=== PATIENT | male | born 1990 | race Caucasian/White ===

== ENCOUNTER 2021-08-30 12:51 | Outpatient (REF) | payer MEDICAID, SELFPAY ==
--- NOTE | ~2021-08-30 | XR_ITS ---
EXAMINATION: XR FOOT, BILATERAL CLINICAL INFORMATION: Pain in the right and left foot. COMPARISON: None TECHNIQUE: 3 views of each foot. FINDINGS: RIGHT FOOT: There is a prominent hallux valgus with uncovering of the medial aspect of the head of the 1st metatarsal. No definite arthrosis. IP joint of the great toe: Question subtle subchondral cystic change in the IP joint without joint space narrowing. Remaining bones, joints and soft tissues unremarkable. LEFT FOOT: There is mild hallux valgus with slight uncovering in the medial aspect of the head of the 1st metatarsal. The bones, joints and soft tissues are otherwise unremarkable. XR/XR foot LT min 3V IMPRESSION: Right foot: Hallux valgus. Possible mild arthrosis of the IP joint of the great toe. Left foot: Normal.
--- NOTE | ~2021-08-30 | XR_ITS ---
EXAMINATION: XR FOOT, BILATERAL CLINICAL INFORMATION: Pain in the right and left foot. COMPARISON: None TECHNIQUE: 3 views of each foot. FINDINGS: RIGHT FOOT: There is a prominent hallux valgus with uncovering of the medial aspect of the head of the 1st metatarsal. No definite arthrosis. IP joint of the great toe: Question subtle subchondral cystic change in the IP joint without joint space narrowing. Remaining bones, joints and soft tissues unremarkable. LEFT FOOT: There is mild hallux valgus with slight uncovering in the medial aspect of the head of the 1st metatarsal. The bones, joints and soft tissues are otherwise unremarkable. XR/XR foot RT min 3V IMPRESSION: Right foot: Hallux valgus. Possible mild arthrosis of the IP joint of the great toe. Left foot: Normal.
--- NOTE | ~2021-08-30 | XR_ITS ---
EXAMINATION: XR KNEE, RIGHT CLINICAL INFORMATION: Pain in right knee COMPARISON: X-ray of the right knee June 2020 TECHNIQUE: Four views of the right knee. FINDINGS: There are postoperative changes related to ACL reconstruction surgery unchanged compared to prior. The bones joints and soft tissues are otherwise normal. XR/XR knee RT 4V IMPRESSION: Stable postoperative changes related to prior ACL reconstruction surgery. No additional findings noted.
== END 2021-08-30 12:52 | disposition home or self-care (01) ==
LOC: HO.XRAY 12:51
PROVIDERS: PCP Internal Medicine Geriatric Medicine; Visit Provider Internal Medicine Geriatric Medicine
DX: M79.671 Pain in right foot (principal); M79.672 Pain in left foot; M25.561 Pain in right knee
CPT/HCPCS: 73564; 73630

== ENCOUNTER 2022-07-16 13:42 | Outpatient (REF) | payer MEDICAID, SELFPAY ==
--- NOTE | 2022-07-16 14:55 | MHC.AU.MED ---
Medical Clearance for Hearing Instrumentation Date: 07/16/22 Patient Name: Brad Ulloa Date of : 1990 Primary Care Provider: Referring Provider: Steven Cruz MD We have seen your patient on 07/16/22 and have determined that they are a candidate for amplification (See accompanying report). Specifically, they would benefit from: Hearing aid use in both ears There is a statute that addresses Medical Evaluation Requirements prior to fitting a patient with a hearing aid. According to [place] statute 265 CMR:6.03(1), (a) General. Except as provided in 265 CMR 6.03(1)(b), a cloth shearing supervisor shall not sell a hearing aid unless the prospective user has presented to the cloth shearing supervisor a written statement signed by a licensed physician that states that the patient's hearing loss has been medically evaluated and the patient may be considered a candidate for a hearing aid. The medical evaluation must have taken place within the preceding six months. Please note: Due to the [place] Statute referenced above, we cannot accept a signature other than that of a licensed physician. AUTO TECH and PA signatures cannot be accepted. I am in agreement with the above recommendation. There is no medical contraindication for hearing instrumentation. Physician Signature Date Physician Name (Printed)
--- NOTE | 2022-07-16 14:56 | MHC.AU.HAS ---
Hearing Aid Evaluation Date of Visit: 07/16/22 Claim Professional Used: [employer]- In Person Historical Information: Description of Hearing: Mild to moderately severe sensorineural hearing loss. Current personal amplification information: Virto V50-312: Destroyed about 2 years ago Summary: Reports having worn them consistently prior to their destruction. However, seemed too loud. Hearing Aid Prescription: Based on the individual?s shared listening needs, communication environments, dexterity, desire for connectivity, and personal preferences, the following prescription for amplification has been made: Right ear: Carbide Die Maker: SmartWatch [employer] Sound Model: Virto Battery Size: 312 Left ear: Left ear prescription to be same as Right Hearing Aid above: Plan of Care: Patient wishes to purchase hearing aids as prescribed Action Taken/Action Needed: [place] Impressions Taken Medical Clearance to be requested from PCP/ENT Primary Diagnosis: H90.3 Bilateral Sensorineural Hearing Loss Secondary Diagnosis: Signature: Provider: Jeffery Shukla, FAAA
== END 2022-07-16 13:43 | disposition home or self-care (01) ==
LOC: HO.SH 13:42
PROVIDERS: Visit Provider Internal Medicine Geriatric Medicine
DX: Z01.118 Encounter for examination of ears and hearing with other abnormal findings (principal); Z46.1 Encounter for fitting and adjustment of hearing aid; H90.3 Sensorineural hearing loss, bilateral
CPT/HCPCS: 92557; 92567; 92588; 92591; V5010; V5275

== ENCOUNTER 2022-09-13 09:56 | Outpatient (REF) | payer MEDICAID, SELFPAY | END 2022-09-13 09:57 | disposition home or self-care (01) | LOC: HO.HAP 09:56 | PROVIDERS: Visit Provider Internal Medicine Geriatric Medicine | DX: Z46.1 Encounter for fitting and adjustment of hearing aid (principal); H90.3 Sensorineural hearing loss, bilateral | CPT/HCPCS: V5011; V5020; V5160; V5259; V5266 ==

== ENCOUNTER 2023-07-03 08:47 | Outpatient (AMB) | payer MEDICAID, SELFPAY ==
[2023-07-03 08:48] VITALS: BP 130/92; PULSE 72; TEMP 36.3; O2SAT 97; BMI 30.4
--- NOTE | 2023-07-03 08:48 | MHC.OFFVIS ---
Intake Vital Signs 07/03/23 08:48 Height 6 ft Weight 224 lb 6.889 oz BMI 30.4 BP 130/92 H Blood Pressure Location Lt brachial Position Sitting Pulse 72 Pulse Source Pulse Oximeter Temp 97.3 F Temp Source Skin Pulse Oximetry (%) 97 Oxygen Delivery Method Room Air Intake Visit Reasons: +YUSEF Intake Note: New patient here for +YUSEF. c/o multiple joint pains, severe finger pain Mathematical Scientist Required: No Accompanied by: Self / Same As Patient Allergies tramadol [TRAMADOL] Allergy (Unknown, Unverified 07/03/23 08:52) ITCHY HPI HPI Comments History of Present Illness Details The patient presents today for evaluation of positive YUSEF and joint pains. He is not exactly sure why he is here. He says he has had joint pains for most of his life that he can remember. He thinks the hands and feet are occasionally swollen. 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 Areas of pain include the hands, forearms, shoulders, lower back, hips, knees and feet. Currently he takes occasional gabapentin but finds it too sedating to take in the daytime. He was also on Celebrex in the past without any improvement and it seemed to cause him some heartburn. He also was on numerous medications for behavioral health disorders including mirtazapine, guanfacine, quetiapine, and trazodone. He stopped taking them he said because they made him feel weird. He admits he does have anxiety problems and occasional panic attacks. He also said that he was not going to go back to the [facility] in [place]. They had been following him for over 2 years he said. He says he feels they were not listening to him but he has no plans to seek a different behavior health provider. He is living with a cousin at present. He was using cocaine in the past but denies that currently. He also used to see a neurologist about headaches and seizure disorder. He was on some seizure medicines but stopped that as well.He reports no recent seizures. 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 Negative for appetite change, weight change, fever, chills, malaise Eyes Details: Some dryness in the eyes. Frequent headaches, a chronic problem. Negative for vision change and dizziness ENT Details: Chronic hearing loss since a child. He has some hearing aids but does not like to use them. Negative for hearing change, tinnitus, oral ulcer, nose bleeds and oral dryness. Card Details: Negative chest pain, edema and syncope Resp Details: Occasional cough and wheezing due to asthma. He uses occasional albuterol inhaler ring goes to the ER when he gets sick. Presently negative for SOB, cough and wheezing GI Details: Intermittent epigastric pains. Negative for nausea, other abdominal pain, bowel changes, diarrhea, constipation and bloody stool. Details: Negative for dysuria, hematuria, nocturia, decreased force/flow and genital discharge Skin/Breast Details: Negative for itching, rash, hives, Raynaud's symptoms, sun sensitivity, and skin cancer Neuro Details: Negative for epilepsy, palsy, stroke, changes in speech, tingling and weakness Psych Details: Negative for anxiety, depression and stress Endo Details: Negative for polyuria and polydypsia Rudy/Lymph Details: Negative for excessive bruising or bleeding. Physical Exam Vital Signs: Last Vital Signs Temp 97.3 F 07/03/23 08:48 Pulse 72 07/03/23 08:48 BP 130/92 H 07/03/23 08:48 Pulse Ox 97 07/03/23 08:48 Oxygen Delivery Method Room Air 07/03/23 08:48 BMI result Body Mass Index 30.4 APPEARANCE: Patient in no acute distress EYES no redness, pupils equal and reactive to light, eyelids normal EARS: External ear normal, canal clear and tympanic membrane normal. NOSE/SINUS: Airflow through both nares, no nasal discharge, no bleeding THROAT: Oral mucosa moist, no ulcerations NECK: No thyromegaly or masses, no adenopathy, trachea midline. HEART: Regulrar rhythm, S1-S2 heard, no murmurs, rubs or gallops. LUNG: Clear to percussion and auscultation ABD: Normal bowel sounds, no organomegaly, masses or tenderness. EXTREMITIES: No edema, no calf tenderness, normal peripheral pulses. NEURO: Oriented and alert x3. No focal weakness. Reflexes symmetric. Gait normal. SKIN: No inflammatory or neoplastic lesions. Normal color and turgor JOINT EXAM:.?? Cervical Spine:.? Mild pain with range of motion of the neck. There is some mild cervical muscle tenderness. Thoracic Spine:.? No scoliosis.? No tenderness on palpation. Lumbar Spine:.? Alignment normal.? Full range of motion with mild pain at the extremes. Straight leg raising causes some buttock and back pain at about 75 degrees. No tenderness. Chest Wall:.? No tenderness, swelling, increased warmth or erythema. Hands:.? Normal pain-free range of motion with mild tenderness across the fingers. No flexor tendon triggering. There is no soft tissue swelling, increased warmth or erythema. No sensory loss or thenar atrophy. Wrists:.? Normal pain-free range of motion with slight dorsal tenderness. No swelling, increased warmth or erythema. Elbows:. Normal pain-free range of motion without tenderness, swelling, increased warmth or erythema. Shoulders:.?? Full range of motion with mild discomfort at the extremes of abduction or internal or external rotation. Mild anterior tenderness without adenopathy, weakness, swelling, increased warmth or erythema. Hips:.? Full range of motion with mild lumbar pain with extremes of internal or external rotation. No groin pain with motion. Hip bursa:mild trochanteric tenderness. Knees:.? Right: Mild pain with extremes of flexion extension. There is mild medial and slight lateral tenderness without redness or effusion. No popliteal swelling or tenderness. Left:? Normal pain-free range of motion without tenderness, swelling, increased warmth or erythema.? There is no effusion or crepitation Ankles:.? Normal pain-free range of motion with slight medial and lateral tenderness but no swelling, increased warmth or erythema. Feet:.? Right: Mild 1st MTP bony enlargement and hallux valgus deformity with mild tenderness. Slight tenderness in the other MTP joints in the instep. No soft tissue swelling, redness or warmth. Left: Slight 1st MTP bony enlargement and tenderness but not as prominently so enlarged as on the right. There is no other area of tenderness or swelling. Tender points: Mild tenderness to digital palpation at the occiput, trapezius, second rib, lateral epicondyle, knees, greater trochanter and gluteal area bilaterally. ? Results Reviewed Results Reviewed: [facility]/175 Imaging Result Report Patient: Brad Ulloa Date of Service: 04/12/22 ? ? Patient Gender: Male Ordering Provider: Gonzalez Mcclendon : 1990 ? ? ? Final ORTHO X-RAY AP STANDING KNEES Exam Date: 04/12/2022 1:46 PM Ordering Diagnosis: Right knee pain, unspecified chronicity ? Date of Visit: 04/12/2022 ? Reason for Visit: Right Knee Pain ? Views: X-rays were performed at the [facility], including Bilateral Knee AP, Cervantes and Donalds views, as well as a Right Knee Lateral view. ? Findings: X-rays were reviewed with the patient. At the right knee, I do not appreciate any evidence of acute fracture, dislocation, or malalignment. There is mild medial femorotibial compartment joint space narrowing and marginal spurring at the medial compartment. There is spurring of the tibial spine. 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 ? Impression: Mild degenerative changes. ? Reading Radiologist: November 2022 lab work from PCP office: White count 6.3, hemoglobin 15.4, platelet count [id number], creatinine 0.97, AST 32, ALT 48, YUSEF positive with a 1:40 titer. Negative rheumatoid factor. CRP elevated 1.3 Assessment & Plan Assessment & Plan (1) Osteoarthritis of right knee: Comment: hx ACL tear and medical meniscal tear surgery 2016 Code(s): M17.11 - Unilateral primary osteoarthritis, right knee (2) YUSEF positive: Code(s): R76.8 - Other specified abnormal immunological findings in serum Plan The patient has a positive YUSEF but no real signs of an active inflammatory arthritis. The radiographs of the knee, which had previous meniscal surgery 6 years ago does reveal some mild medial compartment narrowing consistent with osteoarthritis. There is also some changes of DJD in the right 1st MTP joint. Overall he has many tender points, headache, and anxiety. He seems to fit the pattern more of fibromyalgia. He was given some printed information on fibromyalgia to review. I do not have a handle on what exactly one should label his mental illness but clearly he has anxiety problems. I told him to take the gabapentin only at night. He could use acetaminophen during the day for pain. I think he should work to get a new psychiatric provider to get him back on medicines to help with anxiety. We will check inflammatory markers, anti DNA antibody and anti NIKKY antibodies. I will get back to him with the results. Orders: Orders Anti DNA DS Antibody Today R76.8 - Other specified abnormal immunological findings in serum Erythrocyte Sedimentation Rate Today R76.8 - Other specified abnormal immunological findings in serum C Reactive Protein Today R76.8 - Other specified abnormal immunological findings in serum Anti Extractable Nuclear Ag Today R76.8 - Other specified abnormal immunological findings in serum Coding Level of Care Code New Pt Level 3 (02328) Diagnoses Osteoarthritis of right knee M17.11 YUSEF positive R76.8
== END 2023-07-03 09:41 | disposition home or self-care (01) ==
PROVIDERS: PCP Internal Medicine Geriatric Medicine; Visit Provider Internal Medicine Rheumatology
DX: M17.11 Unilateral primary osteoarthritis, right knee (principal); R76.8 Other specified abnormal immunological findings in serum
CPT/HCPCS: 99203

== ENCOUNTER → 2023-07-03 08:47 | Outpatient (BNVA) | payer MEDICAID, SELFPAY | PROVIDERS: PCP Internal Medicine Geriatric Medicine; Visit Provider Internal Medicine Rheumatology ==

== ENCOUNTER 2025-04-04 12:17 | Outpatient (REF) | payer MEDICAID, SELFPAY ==
--- NOTE | ~2025-04-04 | XR_ITS ---
EXAMINATION: XR KNEE, RIGHT CLINICAL INFORMATION: Chronic pain, history of arthroscopic knee surgery COMPARISON: August 30, 2021. TECHNIQUE: AP oblique, lateral and sunrise views of the right knee. FINDINGS: There is a osseous tunneling in extending from the lateral femoral condyle, medial aspect of the medial tibial plateau/proximal metaphysis. No acute cortical disruption or malalignment. Mild joint space narrowing involving mostly the lateral compartment. No lytic or blastic lesions. No suprapatellar bursa joint effusion. XR/XR knee RT 4V IMPRESSION: Status post ACL repair. No acute fracture or dislocation. Mild osteoarthrosis. Electronically signed by: Brent Arevalo MD 04/04/2025 01:22 PM EDT
--- OUTSIDE RECORDS SUMMARY | 2025-04-04 13:39 | XMS_ITS | Encounter Summary ---
Author Organization [employer] Address [address] [place] [address] Care Team Providers Care Fire Marshal Refinery Name Role Phone Name, Steven BOLAND Primary Care Provider Reason for Visit * Reason Onset Date Comments Appointment Request 09/19/2023 Encounter Details Date Type Department Care Team ([facility] st Contact Info) Description 09/19/2023 Telephone [facility] [address] [place] [address] Name, MD Steven [address] [place], [place] [phone] Appointment Request Social History Tobacco Use Types Packs/Day Years Used Date Smoking Tobacco: Former Cigarettes Smokeless Tobacco: Never Alcohol Use Standard Drinks/Week Comments Not Currently 0 (1 standard drink = 0.6 oz pur e alcohol) Rare Housing Stability Answer Date Recorded What is your housing situation today? I have carla faye 08/18/[address] you li ve. Do you have problems with any of the following? None of the above 08/18/2023 Food Insecurity Answer Date Recorded Within the past 12 months, y ou worried that your food would run out before you got money to buy more: Never True 08/18/2023 Within the past 12 months,th e food you bought just didn't last and you didn't have enough money to get more: Never True 03/2023 Transportation Answer Date Recorded In the past 12 months, has l ack of transportation kept you from medical appts, meetings, work or from getting things needed for daily living? No 08/18/2023 Utilities Answer Date Recorded In the past 12 months, has t he electric, gas, oil or water company threatened to shut off services in your home? No 08/18/2023 Depression Answer Date Recorded Patient Health Questionnaire-2 Score 0 11/19/2022 Sex and Gender Information Value Date Recorded Sex Assigned at Male 08/12/2022 10:19 AM EDT Legal Sex Male 10:19 AM EDT Gender Identity Male 08/12/2022 10:19 AM EDT Sexual Orientation Straight 08/12/2022 10 :19 AM EDT documented as of this encounter Miscellaneous Notes * Telephone Encounter - Oneil Vadim - 09/19/2023 10:12 AM EST Tc from pt stating pediatrist advised pt to contact pcp to schedule a follow up appt and labs. Please contact pt at [phone]. documented in this encounter Plan of Treatment Upcoming Encounters Date Type Department Care Team (Late st Contact Info) Description 06/15/2025 10:45 AM EDT Office Visit [facility] [address] [place] [id number] Name, MD Steven [address] [place] [phone] documented as of this encounter Visit Diagnoses Not on filedocumented in this encounter Care Teams Fire Marshal Refinery Relationship Specialty Start Date End Date Steven Cruz MD [address] [place] [id number] PCP - General Family Medicine 11/15/15 documented as of this encounter
== END 2025-04-04 12:18 | disposition home or self-care (01) ==
LOC: HO.HHCX 12:17
PROVIDERS: PCP Internal Medicine Geriatric Medicine; Visit Provider Internal Medicine Geriatric Medicine
DX: M25.561 Pain in right knee (principal); G89.29 Other chronic pain; E66.9 Obesity, unspecified
CPT/HCPCS: 73564

== ENCOUNTER → 2025-04-04 12:27 | Outpatient (BNV) | payer MEDICAID, SELFPAY | PROVIDERS: PCP Internal Medicine Geriatric Medicine; Visit Provider Radiology Diagnostic Radiology | DX: M25.561 Pain in right knee (principal) | CPT/HCPCS: 73564 ==